=== PATIENT | male | born 1980 | race Caucasian/White ===

== ENCOUNTER 2020-08-12 08:22 | Outpatient (CLI) | payer OTHER, SELFPAY ==
--- NOTE | 2020-08-16 13:42 | WPDNEUROLOGY ---
Neurology EEG Report General Information Date of Study: 08/12/20 TEST eeg DIAGNOSIS seizure CONDITION OF RECORDING drowsy and sleep EEG NUMBER [id number] CLINICAL HISTORY patient reportedly experiencing episodes of spacing out and numbness of the left side of the face. 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 EEG DESCRIPTION whole record consist of low-voltage 11 to 13 hertz per second alpha activity admixed with low-voltage 15 to 21 hertz per second beta. Bilateral symmetrical sleep activity seen admixed with multiple muscle artifacts and regular EKG artifact. Non paroxysmal. nonfocal. nonlateralizing. IMPRESSION No significant abnormalities noted
== END 2020-08-12 08:23 | disposition home or self-care (01) ==
PROVIDERS: Family Provider Family Medicine; PCP Internal Medicine
DX: R56.9 Unspecified convulsions (principal)
CPT/HCPCS: 95816

== ENCOUNTER 2021-01-02 09:00 | Outpatient (RCR) | payer OTHER, SELFPAY ==
--- NOTE | 2020-11-23 15:34 | PTOPEVAL ---
INITIAL PHYSICAL THERAPY EVALUATION and PLAN OF CARE Thank you for referring Randall Diez to [facility] [place].? Randall is scheduled to be seen for physical therapy? 2x/week for 4 weeks. Please review, sign, date and return this plan of care BRITTANIE. I agree with and certify that the following plan of care is medically necessary. Referring Physician Date Admitting Provider: Attending Provider: Hever Lutz MD Referring Provider: *PT Outpatient Evaluation Start: 11/23/20 14:06 Freq: Status: Active Protocol: Document 11/23/20 14:06 FAITH (Rec: 11/23/20 15:33 FAITH [id number]) Therapy Assessment Status Assessment Status Assessment Status Evaluation Outpatient Past Medical History Past Medical History Source of Past Medical History Patient,Family/Significant Other Neurological History Hx Seizures Yes: on medication Hx Other Neurological Disorders Yes: cerebral palsy - L side more affected;[employer]MENT [employer] shunt Cardiovascular History Hx Hypercholesterolemia Yes Hx Hypertension Yes Genitourinary History Hx Other Genitourinary Disorders Yes: chronic urinary urgency - worsening Musculoskeletal History Hx Back Pain Yes Hx Fractures Yes: ORIF L tibia Hx Orthopedic Surgery Yes: bilat heel cord lengthening, L club foot Hx Spinal Surgery Yes: cervical fusion,back surgery Hx Other Musculoskeletal Disorders Yes: neck pain, shoulder pain, neuropathy both feet Endocrine History Hx Diabetes Yes: blood sugars running high Hx Other Endocrine Disorders Yes: 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 R Knee will give out on him - feels like it will. With sleeping - will have discomfort with repositioning. Upon waking up back pain is like 12/10. Doesn't get better with movement. No change with shower. At night
--- NOTE | 2020-12-12 13:10 | PCPTNOTE ---
Patient did not show to appointment. Called and left voicemail.
--- NOTE | 2021-01-02 10:17 | PTOPEVAL ---
PHYSICAL THERAPY DISCHARGE SUMMARY Thank you for referring Randall Diez to [facility].? Randall was seen for 7 visits in PT. He made gains towards all goals set except for pain level goal. He is performing HEP well. He is being discharged from PT at this time. I agree with Randall's discharge from PT. Referring Physician Date Admitting Provider: Attending Provider: Lesli Blair NP Referring Provider: Therapy Assessment Status Assessment Status Assessment Status Discharge Evaluation Information Problem Diagnosis back pain Subjective Information Randall reports that he is Query Text:As Reported By Patient/ having the same amount of back Family pain as when he first started - only now it has spread across the lower back - not just on the R side. He states that doesn't have any problem with getting soda out of his mini fridge in his room. Able to [place] to [place] now. He is able to get into and out of the car now - just needs to take his time. Some difficulty at his father 's house - needed to hold onto him a lot of the time - not sure why. Pain Assessment Self Report Pain Assessment Lower Back Reported Pain Level 0 Pain Description Sharp Other Pain Description pain is now across lower back - before more just on R side Lowest Pain Intensity 0 Greatest Pain Intensity 10 Cervical and Lumbar ROM Lumbar ROM Lumbar Flexion (0-90) 40 Query Text:Active in Degrees Lumbar Extension (0-40) 15 Query Text:Active in Degrees Lumbar Lateral Flexion Right (0-40) 20 Query Text:Active in Degrees Lumbar Lateral Flexion Left (0-40) 15 Query Text:Active in Degrees Lumbar Comments smooth motion with trunk AROM - but discomfort present with all motions - in back and hips Muscle Length Testing Muscle Length Testing Left Hamstring Length -33 Query Text:(90 - 90 Position) Right Hamstring Length -31 Query Text:(90 - 90 Position) Palpation Assessment Palpation Palpation tenderness with P-A mob sacral base L and R, L5 - no discomfort at L4,3,2 Sacrum R on R dysfunction, L5 rot R Gait Assessment Gait Pattern Assessment
== END 2021-02-08 15:54 | disposition home or self-care (01) ==
LOC: ANHHIPT 09:00
PROVIDERS: PCP Nurse Practitioner Family; Visit Provider Nurse Practitioner Family
DX: M54.5 Low back pain (principal); B35.1 Tinea unguium; G89.29 Other chronic pain
CPT/HCPCS: 97014; 97110; 97140; 97162; G0283

== ENCOUNTER → 2021-03-30 11:51 | Outpatient (CLI) | payer OTHER, SELFPAY ==
--- NOTE | ~2021-03-30 | XR_ITS ---
EXAMINATION: XR knee RT 2V DATE: 03/30/2021 12:17 INDICATION: Right knee pain. TECHNIQUE: 4 views of right knee were obtained. COMPARISON: None. FINDINGS: Bone alignment is normal. No fracture. Joint spaces are well maintained. There is no knee j oint effusion. IMPRESSION: 1. Normal right knee. Reviewed, dictated and finalized at location A. IMPRESSION: 1. Normal right knee.
== END ==
PROVIDERS: PCP Nurse Practitioner Family; Visit Provider Nurse Practitioner Family
DX: M25.561 Pain in right knee (principal)
CPT/HCPCS: 73560

== ENCOUNTER 2021-12-22 14:40 | Outpatient (RCR) | payer OTHER, SELFPAY ==
[2021-12-22 14:50] VITALS: BP 136/69; PULSE 105; TEMP 36.4; O2SAT 96
[2021-12-22] MEDS: FAMOTIDINE 20 MG TABLET PO (14:51)
[2021-12-22] MEDS: diphenhydrAMINE HCl CAP 25 MG CAPSULE PO (14:51)
[2021-12-22] MEDS: BEBTELOVIMAB 175 MG/2 ML VIAL IV PUSH (15:08)
[2021-12-22 15:50] VITALS: BP 110/66; PULSE 107; O2SAT 97
== END 2021-12-22 16:00 | disposition home or self-care (01) ==
LOC: AMCINF 14:40
PROVIDERS: Referring Provider Nurse Practitioner Family; Visit Provider Internal Medicine Hematology & Oncology
DX: U07.1 COVID-19 (principal); I10 Essential (primary) hypertension; E11.9 Type 2 diabetes mellitus without complications; F89 Unspecified disorder of psychological development
CPT/HCPCS: A9270; M0222; Q0222

== ENCOUNTER 2023-03-04 14:41 | Outpatient (CLI) | payer OTHER, SELFPAY ==
--- NOTE | ~2023-03-04 | CT_ITS ---
EXAMINATION: CT lumbar spine wo con DATE: 03/04/2023 15:22 INDICATION: Lumbar degenerative disc disease. TECHNIQUE: Computed tomography (CT) of the lumbar spine was performed without intravenous contrast. A utomated exposure control and iterative reconstruction technique were employed. The dose-length produ ct was 1395.03 mGy-cm. COMPARISON: None FINDINGS: There is 8 degrees dextrocurvature of the lumbar spine. There is 7 degrees levocurvature of lumbar spine. Vertebral body heights are normal. There is mildly decreased disc height at L1-L2, L2- L3, and L3-L4 and severely decreased disc height at L4-L5. The following disc levels are specifically discussed: L1-L2: The disc is bulging. There is mild bilateral facet joint osteoarthritis. There is mild bilater al neural foraminal stenosis. There is mild central canal stenosis. L2-L3: The disc is bulging. There is mild right and moderate left facet joint osteoarthritis. There i s mild bilateral neural foraminal stenosis. There is mild central canal stenosis. There is moderate s tenosis of the lateral recesses. L3-L4: The disc is bulging. There is moderate right and severe left facet joint osteoarthritis. There is severe right and mild left neural foraminal stenosis. There is mild central canal stenosis. L4-L5: The disc is bulging with superimposed central extrusion. There is severe bilateral facet joint osteoarthritis. There is moderate bilateral neural foraminal stenosis. There is severe central canal stenosis. L5-S1: The disc does not extend beyond the endplate margin. There is severe bilateral facet joint ost eoarthritis. There is no neural foraminal stenosis. There is no central canal stenosis. IMPRESSION: 1. Severe lumbar spondylosis. Reviewed, dictated and finalized at location A.
== END 2023-03-04 14:42 | disposition home or self-care (01) ==
PROVIDERS: PCP Nurse Practitioner Family
DX: M51.36 Other intervertebral disc degeneration, lumbar region (principal); M43.06 Spondylolysis, lumbar region
CPT/HCPCS: 72131